=== PATIENT | female | born 1990 | race Caucasian/White ===

== ENCOUNTER 2019-03-10 11:24 | Emergency (ER) | payer MEDICAID, OTHER ==
[2019-03-10 11:36] VITALS: BP 137/71
[2019-03-10 11:54] LABS: BILIRUBIN,URINE NEGATIVE (NEGATIVE); GLUCOSE, URINE (UA) NEGATIVE (NEGATIVE); KETONES,URINE (UA) NEGATIVE (NEGATIVE); LEUKOCYTE ESTERASE, URINE NEGATIVE (NEGATIVE); NITRITE,URINE NEGATIVE (NEGATIVE); OCCULT BLOOD,URINE NEGATIVE (NEGATIVE); PH,URINE 5.5 PH (5.0-7.5); PROTEIN,URINE NEGATIVE (NEGATIVE); UROBILINOGEN,URINE 0.2 (NORMAL) E.U./dL (NORMAL)
[2019-03-10 11:56] LABS: CLARITY,URINE CLEAR (CLEAR); HCG UR QUAL NEGATIVE
--- NOTE | 2019-03-10 12:58 | ED Physician Documentation ---
PD HPI FEMALE - Stated complaint Stated Complaint: FEMALE - Chief complaint Chief Complaint: UTI - History obtained from History obtained from: Patient - History of Present Illness Timing - onset: Other (28-year-old woman, sexually active last time a few months ago. Last few days she has had some vaginal burning and suprapubic pain. There is no discharge. No back pain. She also notes lack of menses for 50 days.) Review of Systems Constitutional: denies: Fever, Chills Respiratory: denies: Dyspnea, Cough : reports: Dysuria. denies: Frequency, Hesitancy PD PAST MEDICAL HISTORY - Past Surgical History Past Surgical History: No - Present Medications Home Medications: Ambulatory Orders Medication Instructions Recorded Confirmed Fluconazole [Diflucan] 150 mg PO ONCE #1 tablet 06/20/15 Sulfamethoxazole/Trimethoprim 1 each PO BID #10 tablet 06/20/15 [Sulfamethoxazole-Tmp Ds Tablet] Metronidazole [Flagyl] 500 mg PO BID #14 tablet 03/10/19 - Allergies Allergies/Adverse Reactions: Allergies Allergy/AdvReac Type Severity Reaction Status Date / Time No Known Drug Allergies Allergy Verified 06/20/15 05:48 - Social History Does the pt smoke?: No Smoking Status: Never smoker Does the pt drink ETOH?: No Does the pt have substance abuse?: No - Immunizations Immunizations are current?: Yes - POLST Patient has POLST: No PD ED PE NORMAL - Vitals Vital signs reviewed: Yes - General General: Alert and oriented X 3, No acute distress - Abdomen Abdomen: Normal bowel sounds, Soft, Non tender - Female Female : Lighting Designer present (Mague Schofield RN), Other (Modest white curdy discharge without significant inflammation. Nontender.) - Back Back: No CVA TTP - Neuro Neuro: Alert and oriented X 3, Normal speech Results - Vitals Vitals: Vital Signs - 24 hr 03/10/19 11:34 Temperature 37.4 C Heart Rate 96 Respiratory 18 Rate Blood Pressure 137/71 H O2 Saturation 100 Oxygen O2 Source Room air - Labs Labs: Microbiology 03/10/19 13:45 Wet Prep - Final Vaginal Laboratory Tests 03/10/19 11:40 Urine Color YELLOW Urine Clarity CLEAR Urine pH 5.5 Ur Specific [place] 1.010 Urine Protein NEGATIVE Urine Glucose (UA) NEGATIVE Urine Ketones NEGATIVE Urine Occult Blood NEGATIVE Urine Nitrite NEGATIVE Urine Bilirubin NEGATIVE Urine Urobilinogen 0.2 (NORMAL) Ur Leukocyte Esterase NEGATIVE Ur Microscopic Review NOT INDICATED Urine Culture Comments NOT INDICATED Urine HCG, Qual NEGATIVE Departure - Departure Disposition: 01 Home, Self Care Clinical Impression: Bacterial vaginitis Condition: Good Record reviewed to determine appropriate education?: Yes Instructions: ED Vaginosis Bacterial Follow-Up: [facility] [Provider Group] - Within 1 week Prescriptions: Metronidazole [Flagyl] 500 mg PO BID #14 tablet Comments: Do not drink alcohol while on the antibiotic. Return for new worsening symptoms. Your blood pressure was elevated today on check into the emergency department. This does not mean that you have hypertension, it is a common phenomenon to come to the emergency department and have elevated blood pressure. I recommend that you see your primary care physician within the week to have it rechecked when you are feeling better.
[2019-03-11 00:05] LABS: TRICHOMONAS VAGINALIS DNA NEGATIVE (NEGATIVE)
== END 2019-03-10 14:31 | disposition home or self-care (01) ==
LOC: ED 11:24
DX: N76.0 Acute vaginitis (principal); B96.89 Other specified bacterial agents as the cause of diseases classified elsewhere; R03.0 Elevated blood-pressure reading, without diagnosis of hypertension
CPT/HCPCS: 81001; 81003; 81025; 87086; 87210; 87491; 87591; 87661; 99283

== ENCOUNTER 2019-03-13 08:00 | Outpatient (CLI) | payer MEDICAID ==
[2019-03-13 12:37] LABS: BASOPHILS % (AUTO) 0.5 %; EOSINOPHILS # (AUTO) 0.1 10^3/uL (0.0-0.7); HGB - HEMOGLOBIN 12.6 g/dL (12.0-16.0); LYMPHOCYTES # (AUTO) 2.6 10^3/uL (1.5-3.5); LYMPHOCYTES % (AUTO) 39.6 %; MEAN CORPUSCULAR HEMOGLOBIN 27.2 pg (27.0-31.0); MEAN CORPUSCULAR HGB CONC 32.3 g/dL (32.0-36.0); MEAN CORPUSCULAR VOLUME 84.2 fL (81.0-99.0); MEAN PLATELET VOLUME 9.4 fL (7.9-10.8); MONOCYTES # (AUTO) 0.5 10^3/uL (0.0-1.0); MONOCYTES % (AUTO) 7.4 %; NEUTROPHILS # (AUTO) 3.3 10^3/uL (1.5-6.6); NEUTROPHILS % (AUTO) 50.3 %; PLT - PLATELET COUNT 283 10^3/uL (130-450); RED BLOOD COUNT 4.63 10^6/uL (4.20-5.40); RED CELL DISTRIBUTION WIDTH 12.6 % (12.0-15.0); WHITE BLOOD COUNT 6.5 x10^3/uL (4.8-10.8)
[2019-03-13 13:08] LABS: ALBUMIN 4.2 g/dL (3.2-5.5); ALBUMIN/GLOBULIN RATIO 1.4 (1.0-2.2); ALKALINE PHOSPHATASE 42 IU/L (42-121); ALT ALANINE AMINOTRANSFERASE 16 IU/L (10-60); AST ASPARTATE AMINOTRANSFERASE 20 IU/L (10-42); BILIRUBIN,TOTAL 0.7 mg/dL (0.2-1.0); BUN - BLOOD UREA NITROGEN 15 mg/dL (6-20); CALCIUM 8.9 mg/dL (8.5-10.3); CARBON DIOXIDE - CO2 26 mmol/L (21-32); CHLORIDE 106 mmol/L (101-111); CHOL/HDL RATIO 5.7 (<4.4); CHOLESTEROL 193 mg/dL; CREATININE 0.7 mg/dL (0.4-1.0); GFR - MDRD 100 (>89); GLUCOSE 108 mg/dL (70-100); HDL CHOLESTEROL 34 mg/dL; LDL CHOLESTEROL,CALCULATED 129 mg/dL; LDL/HDL RATIO 3.8 (<4.4); SODIUM 138 mmol/L (135-145); TOTAL PROTEIN 7.3 g/dL (6.7-8.2); VLDL CHOLESTEROL 30 mg/dL
== END 2019-03-13 23:59 | disposition home or self-care (01) ==
LOC: LAB.WCP 08:00
PROVIDERS: ATTEND Nurse Practitioner Gerontology
DX: Z13.9 Encounter for screening, unspecified (principal)
CPT/HCPCS: 36415; 80053; 80061; 83721; 84443; 85025

== ENCOUNTER 2019-03-24 07:54 | Outpatient (CLI) | payer MEDICAID ==
--- NOTE | 2019-03-24 09:05 | Ultrasound Report ---
Reason: OVARIAN CYST Procedure Date: 03/24/2019 Accession Number: [id number] / [id number] Procedure: US - Pelvic w/Transvaginal CPT Code: FULL RESULT: EXAM: PELVIC ULTRASOUND EXAM DATE: 03/24/2019 08:37 AM. CLINICAL HISTORY: Ovarian cyst. Discomfort on pelvic exam in office. COMPARISON: None. TECHNIQUE: Realtime transabdominal pelvic scan performed to identify the uterus and adnexa and as an overview of other pelvic structures, followed by transvaginal scan to provide greater detail of the uterus and adnexa, with static image documentation. FINDINGS: Uterus: 10.1 x 4.0 x 5.9 cm, volume 125 cc. Anteverted position. Normal overall size and echotexture. Masses: None. Endometrium: 10.8 mm. Normal. Fluid within the lower canal, maximum thickness 3.5 mm. Cervix: Nabothian cysts. Right Ovary: 3.4 x 2.2 x 2.2 cm, volume 8.6 cc. Blood flow documented. There is a hyperechoic ovarian mass measuring 1.8 x 1.6 x 1.4 cm. This could represent a hemorrhagic cyst. Given the echogenicity, a dermoid tumor is within the differential diagnosis. No internal vascularity demonstrated. Left Ovary: 3.0 x 2.5 x 3.0 cm, volume 11.8 cc. Normal echotexture and blood flow. Dominant simple 1.8 cm follicle. Free Fluid: None. Other: None. IMPRESSION: 1. Mild endometrial fluid. 2. 1.8 cm right ovarian hyperechoic mass. This is nonspecific. Differential diagnosis includes a hemorrhagic cyst and a dermoid. Further evaluation by MR imaging could be considered, versus followup to assess for regression. RADIA
== END 2019-03-24 07:55 | disposition home or self-care (01) ==
LOC: DI 07:54
PROVIDERS: ATTEND Obstetrics & Gynecology
DX: N83.9 Noninflammatory disorder of ovary, fallopian tube and broad ligament, unspecified (principal); N76.0 Acute vaginitis; N91.2 Amenorrhea, unspecified; N89.8 Other specified noninflammatory disorders of vagina; R87.619 Unspecified abnormal cytological findings in specimens from cervix uteri
CPT/HCPCS: 36415; 76830; 76856; 83001; 83002; 83036; 84443

== ENCOUNTER 2019-03-24 08:36 | Outpatient (CLI) | payer MEDICAID ==
[2019-03-24 09:45] LABS: THYROID STIMULATING HORMONE 3.23 uIU/mL (0.34-5.60)
[2019-03-24 10:13] LABS: FOLLICLE STIMULATING HORMONE 5.12 mIU/mL; LUTEINIZING HORMONE 9.8 mIU/mL
[2019-03-24 12:14] LABS: HB2 TOTAL 13.4 g/dL; HEMOGLOBIN A1C 0.55 g/dL; HEMOGLOBIN A1C % 5.9 % (4.6-6.2)
== END 2019-03-24 08:37 | disposition home or self-care (01) ==
LOC: LAB 08:36
PROVIDERS: ATTEND Obstetrics & Gynecology
DX: N76.0 Acute vaginitis (principal); N91.2 Amenorrhea, unspecified; N89.8 Other specified noninflammatory disorders of vagina; R87.619 Unspecified abnormal cytological findings in specimens from cervix uteri
CPT/HCPCS: 36415; 83001; 83002; 83036; 84443

== ENCOUNTER 2019-03-26 11:47 | Outpatient (CLI) | payer MEDICAID ==
[2019-03-27 10:32] LABS: HEPATITIS C ANTIBODY NON-REACTIVE (NON-REACTIVE)
[2019-03-27 13:02] LABS: HIV AG/AB 4TH GEN NON-REACTIVE (NON-REACTIVE)
[2019-03-28 10:51] LABS: HSV 2 IGG TYPE SPECIFIC AB <0.90 index
== END 2019-03-26 11:48 | disposition home or self-care (01) ==
LOC: LAB 11:47
PROVIDERS: ATTEND Obstetrics & Gynecology
DX: Z71.89 Other specified counseling (principal)
CPT/HCPCS: 36415; 81599; 86592; 86695; 86696; 86803; 87389

== ENCOUNTER 2019-03-31 12:31 | Outpatient (CLI) | payer MEDICAID ==
[2019-04-01 15:46] LABS: HEPATITIS B SURFACE ANTIGEN NON-REACTIVE (NON-REACTIVE)
== END 2019-03-31 12:32 | disposition home or self-care (01) ==
LOC: LAB 12:31
PROVIDERS: ATTEND Obstetrics & Gynecology
DX: Z71.89 Other specified counseling (principal)
CPT/HCPCS: 87340; 87902

== ENCOUNTER 2019-05-05 07:57 | Outpatient (CLI) | payer MEDICAID ==
--- NOTE | 2019-05-05 14:47 | Ultrasound Report ---
Reason: RT OVARIAN CYST Procedure Date: 05/05/2019 Accession Number: [id number] / [id number] Procedure: US - Pelvic w/Transvaginal CPT Code: Final Report FULL RESULT: EXAM: PELVIC ULTRASOUND EXAM DATE: 05/05/2019 08:05 AM. CLINICAL HISTORY: Right ovarian cyst. COMPARISON: PELVIC W/TRANSVAGINAL 03/24/2019 7:55 AM. TECHNIQUE: Realtime transabdominal pelvic scan performed to identify the uterus and adnexa and as an overview of other pelvic structures, followed by transvaginal scan to provide greater detail of the uterus and adnexa, with static image documentation. FINDINGS: Uterus: 9.8 x 4.4 x 5.4 cm, volume 121.2 cc. Anteverted position. Normal overall size and echotexture. Masses: None. Endometrium: 12 mm. Normal. Cervix: Nabothian cysts are noted. Right Ovary: 3.5 x 2.1 x 3.3 cm, volume 13 cc. 1.5 x 1.8 x 1.6 cm echogenic focus within the right ovary is not specific but most likely represents a dermoid. Left Ovary: 2.6 x 2.2 x 2.5 cm, volume 8 cc. Normal echotexture and blood flow. Free Fluid: None. Other: None. IMPRESSION: A 1.8 cm echogenic lesion has not enlarged in the interval. While this is not sonographically specific, dermoids as well as less likely calcifications, such as postinflammatory etiologies could have this appearance. RADIA
== END 2019-05-05 07:58 | disposition home or self-care (01) ==
LOC: DI 07:57
PROVIDERS: ATTEND Obstetrics & Gynecology
DX: N83.9 Noninflammatory disorder of ovary, fallopian tube and broad ligament, unspecified (principal)
CPT/HCPCS: 76830; 76856

== ENCOUNTER 2019-05-21 14:03 | Outpatient (CLI) | payer MEDICAID | END 2019-05-21 14:04 | disposition home or self-care (01) | LOC: LAB.WCP 14:03 → LAB 14:04 | PROVIDERS: ATTEND Obstetrics & Gynecology | DX: Z01.812 Encounter for preprocedural laboratory examination (principal); L72.0 Epidermal cyst; N83.291 Other ovarian cyst, right side | CPT/HCPCS: 36415; 80048; 85025; 86850; 86900; 86901 ==

== ENCOUNTER 2019-05-23 10:06 | Outpatient (CLI) | payer MEDICAID ==
[2019-05-23 10:36] LABS: CALCIUM 9.2 mg/dL (8.5-10.3); CREATININE 0.6 mg/dL (0.4-1.0)
[2019-05-23 10:45] LABS: BASOPHILS # (AUTO) 0.1 10^3/uL (0.0-0.1); BASOPHILS % (AUTO) 0.8 %; EOSINOPHILS # (AUTO) 0.1 10^3/uL (0.0-0.7); EOSINOPHILS % (AUTO) 1.7 %; HGB - HEMOGLOBIN 13.1 g/dL (12.0-16.0); LYMPHOCYTES % (AUTO) 33.8 %; MEAN CORPUSCULAR HEMOGLOBIN 27.1 pg (27.0-31.0); MEAN CORPUSCULAR HGB CONC 32.6 g/dL (32.0-36.0); MEAN CORPUSCULAR VOLUME 83.1 fL (81.0-99.0); MEAN PLATELET VOLUME 8.7 fL (7.9-10.8); MONOCYTES # (AUTO) 0.3 10^3/uL (0.0-1.0); MONOCYTES % (AUTO) 5.8 %; NEUTROPHILS # (AUTO) 3.4 10^3/uL (1.5-6.6); NEUTROPHILS % (AUTO) 57.7 %; PLT - PLATELET COUNT 316 10^3/uL (130-450); RED BLOOD COUNT 4.84 10^6/uL (4.20-5.40); WHITE BLOOD COUNT 5.9 x10^3/uL (4.8-10.8)
== END 2019-05-23 10:07 | disposition home or self-care (01) ==
LOC: LAB 10:06
PROVIDERS: ATTEND Obstetrics & Gynecology
DX: Z01.818 Encounter for other preprocedural examination (principal); D27.0 Benign neoplasm of right ovary
CPT/HCPCS: 36415; 80048; 85025; 86850; 86870; 86900; 86901; 86920; 86922

== ENCOUNTER 2019-05-25 12:43 | Day surgery (SDC) | payer MEDICAID ==
[~2019-05-25 12:43] MED LIST: ACETAMINOPHEN 1,000 MG/100 ML 100 ML IV ONE; CEFAZOLIN SODIUM IN 0.9 % NACL 2 GM/100 ML BAG IV ONE; GABAPENTIN 400 MG CAPSULE ONE
[2019-05-25 13:10] LABS: HCG UR QUAL NEGATIVE
[2019-05-25] MEDS ORDERED: LACTATED RINGERS 1,000 ML IV ONE ×2 (13:10→16:39)
--- NOTE | 2019-05-25 13:58 | ANESTHESIA ---
Pre-Anesthesia VS, & Labs - Diagnosis Dermoid cyst - Procedure Excision of dermoid cyst Vital Signs: Temp Pulse Resp BP Pulse Ox 36.8 C 81 16 131/82 H 100 05/25/19 13:00 05/25/19 13:00 05/25/19 13:00 05/25/19 13:00 05/25/19 13:00 Height 5 ft 7 in Weight (kg) 103 kg Body Mass Index 34.4 - NPO >8 hours - Is Patient ?: No - Lab Results Lab results reviewed: Yes Home Medications and Allergies Home Medications: Ambulatory Orders No Known Home Medications 05/11/19 No Known Home Medications 05/11/19 Allergies/Adverse Reactions: Allergies Allergy/AdvReac Type Severity Reaction Status Date / Time No Known Drug Allergies Allergy Verified 06/20/15 05:48 Anes History & Medical History - Anesthetic History Anesthesia Complications: reports: No previous complications Family history of Anesthesia Complications: Denies Family history of Malignant Hyperthermia: Denies - Medical History Cardiovascular: reports: None Pulmonary: reports: None Gastrointestinal: reports: None Urinary: reports: None Neuro: reports: None Musculoskeletal: reports: None Endocrine/Autoimmune: reports: None Blood Disorders: reports: None Skin: reports: None Smoking Status: Never smoker Psychosocial: reports: No issues indicated - Surgical History Eyes Ears Nose Throat (EENT): Tonsil/Adenoidectomy Exam General: Alert Dental: WNL Mouth Opening: Greater than 4 Fingerbreadths Neck Mobility: Normal Mallampati classification: I Thyromental Distance: greater than 6 cm Respiratory: Lungs clear Cardiovascular: Regular rate Mental/Cognitive Status: Alert/Oriented X3 Cognitive Status: Within normal limits Plan Anesthesia Type: General Consent for Procedure(s) Verified and Reviewed: Yes Code Status: Attempt Resuscitation ASA classification: 2-Mild systemic disease Is this case an emergency?: No
[2019-05-25] MEDS ORDERED: BUPIVACAINE 0.25% PF 30 ML VIAL ONE (14:39)
[2019-05-25] MEDS ORDERED: GLYCOPYRROLATE 1 MG/5 ML VIAL IVP ONE (15:15)
[2019-05-25] MEDS ORDERED: PROPOFOL 200 MG/20 ML VIAL IVP ONE (15:15)
[2019-05-25] MEDS ORDERED: ROCURONIUM 50 MG/5 ML VIAL IVP ONE (15:15)
[2019-05-25] MEDS ORDERED: ONDANSETRON 4 MG/2 ML VIAL IVP ONE (15:15)
[2019-05-25] MEDS ORDERED: fentaNYL 100 MCG/2 ML VIAL IVP ONE (15:15)
[2019-05-25] MEDS ORDERED: NEOSTIGMINE 1 MG/1 ML 10 ML MDV IVP ONE (15:15)
[2019-05-25] MEDS ORDERED: LIDOCAINE-MPF 2% 5 ML VIAL IM ONE (15:15)
[2019-05-25] MEDS ORDERED: DEXAMETHASONE 4 MG/ML VIAL IVP ONE (15:15)
[2019-05-25] MEDS ORDERED: MIDAZOLAM 2 MG/2 ML VIAL IVP ONE (15:15)
[2019-05-25] MEDS ORDERED: KETOROLAC 30 MG/ML VIAL IVP ONE (15:15)
[2019-05-25] MEDS ORDERED: ACETAMINOPHEN 1,000 MG/100 ML 100 ML IV ONE (15:15)
[2019-05-25] MEDS ORDERED: LIDOCAINE 1%-EPI 1:100000 20 ML MDV ONE (15:43)
[2019-05-25] MEDS ORDERED: BUPIVACAINE 0.25% PF 30 ML VIAL SUBQ ONE ×2 (16:11)
[2019-05-25] MEDS ORDERED: LORazepam 2 MG/ML VIAL IVP PRN (16:54)
[2019-05-25] MEDS ORDERED: HYDROmorphone 0.5 MG/0.5 ML SYRINGE IVP PRN (16:54)
[2019-05-25] MEDS ORDERED: oxyCODONE 5 MG TABLET PO PRN (16:54)
[2019-05-25] MEDS ORDERED: ONDANSETRON 4 MG/2 ML VIAL IVP PRN (16:54)
[2019-05-25] MEDS ORDERED: fentaNYL 100 MCG/2 ML VIAL ONE (16:55)
--- NOTE | 2019-05-25 16:58 | OPERATIVE REPORT ---
Operative Report - General Procedure Date: 05/25/19 Planned Procedure: laproscopic removal of right ovarian dermoid cyst Pre-Op Diagnosis: Right ovarian dermoid cyst Procedure Performed: Attempted drainage of right ovarian cyst Post Op Diagnosis: right ovarian cyst - Procedure Note Primary Surgeon: Bruce Garcia MD Secondary Surgeon: Lexus Morelos Anesthesia Provider: Kit Birmingham CRNA Anesthesia Technique: General ET tube IV Fluids (mL): 800 Estimated Blood Loss (mL): 30 Urine Output (mL): 250 Indications: US evidence of 1.8 cm right ovarian dermoid cyst - Other Other Information/Narrative: [id number]
--- NOTE | 2019-05-25 17:53 | OPERATIVE REPORT ---
DATE OF SERVICE: 05/25/2019 Physician: Bruce Garcia MD PREOPERATIVE DIAGNOSIS: Right dermoid cyst. POSTOPERATIVE DIAGNOSIS: Right ovarian cyst. SURGEON: Bruce Garcia MD DIALYSIS SOCIAL WORKER: Dr. Lexus Marks. PROCEDURE: Diagnostic laparoscopy with drainage of right ovarian cyst. ANESTHESIA: General via endotracheal tube. RESEARCH MICROBIOLOGIST: Kit Birmingham CRNA. IV FLUIDS BLOOD LOSS: 800 mL URINE OUTPUT: 125 mL ESTIMATED BLOOD LOSS: 30 mL. HISTORY OF PRESENT ILLNESS: Patient is a 28-year-old female who had an ultrasound, which showed alex dence of a corpus hemorrhagicum. She had a followup ultrasound 6 weeks later, which was read as a 1. 8 cm dermoid cyst. For this reason, she was taken to the operating room for removal of the dermoid c yst. FINDINGS: Upon entering the abdominal cavity, there was evidence of no adhesions. The tubes appeare d to be normal without evidence of any blockage. The ovaries appeared to be mildly enlarged. There was an obvious corpus luteum on the left ovary. The right ovary was swollen with the possibility of an interstitial dermoid; however, there was no evidence of any discoloration or signs of hair or seba ceous material. PROCEDURE IN DETAIL: Following adequate endotracheal anesthesia, patient was placed in dorsal lithot zeus position in Twin stirrups. At this point, she was prepped and draped in the usual sterile fashi on. A timeout was performed, following which, a speculum was placed in the vagina. The cervix was v isualized, grasped with a single-tooth tenaculum. The uterus sounded to roughly 6 cm and dilated to 8 mm. A HUMI uterine manipulator was placed without difficulty. At this point, the dumper operator's glove s were changed and following local anesthesia of 0.25% Marcaine with epinephrine, a subumbilical port was placed. There was some difficulty with the abdominal wall thickness and after the second attemp t, it was placed in the abdominal cavity. A video laparoscope was introduced, and there is evidence of no trauma at the site of insertion. Two additional ports were placed, both in left and right lowe r quadrants following local anesthesia with 0.25% Marcaine with epinephrine as well as a skin incisio n with a #11 blade. At this point, the pelvis was inspected in totality. There was no evidence of e ndometriosis in the petit of the peritoneal cavity, the tubes appeared to be normal. The left ovary had what appears to be a corpus luteum. The right ovary was swollen and after multiple attempts with a laparoscopic needle, only a scant amount of fluid was removed, which was straw-colored. This was observed. There was no evidence of any further bleeding from the ovary. The pelvic cavity was inspe cted once again and there was no evidence of any active bleeding. For this reason, the right port wa s removed under direct visualization as well as the left port. The subumbilical port was removed aft er allowing as much of the carbon dioxide to escape. Both incisions were closed using 4-0 Monocryl s ubcuticular and Mastisol was used for skin closure. The instruments were then removed from the vagin a. Patient tolerated the procedure well and was taken to recovery in stable condition. Sponge and n eedle counts were correct. TD: 05/25/2019 17:06
[2019-05-25 17:57] LABS: HIV RAPID SCREEN NEGATIVE (NEGATIVE)
[2019-05-25 18:13] VITALS: BP 130/86
[2019-05-26 11:09] LABS: HIV AG/AB 4TH GEN NON-REACTIVE (NON-REACTIVE)
[2019-05-26 12:05] LABS: HEPATITIS B SURFACE ANTIGEN NON-REACTIVE (NON-REACTIVE); HEPATITIS C ANTIBODY NON-REACTIVE (NON-REACTIVE)
== END 2019-05-25 12:44 | disposition home or self-care (01) ==
LOC: SDS 12:43
PROVIDERS: ATTEND Obstetrics & Gynecology
PROC: 0U904ZX Drainage of Right Ovary, Percutaneous Endoscopic Approach, Diagnostic (ICD-10-PCS; principal; 2019-05-25 14:15)
DX: N83.201 Unspecified ovarian cyst, right side (principal); N83.12 Corpus luteum cyst of left ovary
CPT/HCPCS: 36415; 49322; 81025; 86803; 87340; 87389; A9270; J0131; J0690; J7120